=== PATIENT | female | born 2000 | race Caucasian/White ===

== ENCOUNTER 2022-01-27 12:38 | Emergency (ER) | payer OTHER ==
[~2022-01-27] VITALS: Ht 160 cm; Wt 77.3 kg
[2022-01-27 12:44] VITALS: TEMP 98.7
[2022-01-27 14:59] VITALS: BP 127/85; PULSE 85
== END 2022-01-27 14:59 | disposition home or self-care (01) ==
LOC: COL.ER 12:38
DX: T78.1XXA Other adverse food reactions, not elsewhere classified, initial encounter (principal); Z28.310 Unvaccinated for COVID-19
CPT/HCPCS: J8540